=== PATIENT | female | born 1930 | race Caucasian/White ===

== ENCOUNTER 2017-05-09 11:30 | Day surgery (SDC) | payer MEDICARE, BC ==
[~2017-05-09] VITALS: Ht 154.9 cm; Wt 45.5 kg
[2017-05-09] MEDS ORDERED: COZAAR50 MG PO (13:21)
[2017-05-09 13:22] LABS: ANION GAP 15.2 mmol/L (8-16); CALCIUM 8.9 mg/dL (8.5-10.1); CARBON DIOXIDE 26.4 mmol/L (21.0-32.0); POTASSIUM - SERUM 3.6 mmol/L (3.5-5.1)
[2017-05-09] MEDS ORDERED: LOPRESSOR25 MG PO (13:22)
[2017-05-09] MEDS ORDERED: LOMOTIL TABLET1 TAB PO (13:22)
[2017-05-09 13:26] LABS: BASOPHILS 0.3 % (0-2); EOSINOPHILS 0.6 % (0-7); HEMATOCRIT 42.9 % (36.0-48.0); HEMOGLOBIN 14.3 g/dL (12-16); IMMATURE GRANULOCYTES 0.3 % (0-5); LYMPHOCYTES 15.2 % (15-50); MCH 29.4 pg (26.0-34.0); MCHC 33.3 g/dL (31.0-37.0); MCV 88.1 fL (80.0-100.0); MEAN PLATELET VOLUME 10.7 fL (7.4-10.4); MONOCYTES 7.4 % (2-11); NEUTROPHILS 76.2 % (40-80); PLATELET COUNT 269 10x3/uL (130-400); RBC 4.87 10x6/uL (4.00-5.40); RDW 14.2 % (11.5-14.5); WBC 6.9 10x3/uL (4.8-10.8)
[2017-05-09 13:34] VITALS: BP 161/78; Ht 154.9 cm; Wt 45.5 kg
--- NOTE | 2017-05-09 15:22 | NUR ---
IV RT A/C INFILTRATED PRIOR TO PROCEDURE. IV DCD CATHETER INTACT. IV RESITED BY MOLLY SHERMAN CRNA LT HAND NO REDNESS OR SWELLING.
--- NOTE | 2017-05-09 15:23 | NUR ---
STOOLS STUDIES COLLECTED.
--- NOTE | 2017-05-09 17:10 | NUR ---
7873 DISCHARGE INSTRUCTIONS COMPLETE. QUESTRAN PRESCRIPTION GIVEN. SHE HAS NO QUESTIONS OR CONCERNS. ESCORTED OUT BY BRYANT BUSTOS.
--- NOTE | 2017-05-13 07:44 | OP ---
PATIENT NAME: CHRISTY MUHAMMAD MEDICAL RECORD: [id number] :[birth year] LOCATION:D.FORMERLY [facility] [place] ADMISSION DATE: SURGEON: LEAH HAWKINS DO DATE OF OPERATION: 05/09/2017 PROCEDURE: Colonoscopy with biopsies. INDICATIONS FOR PROCEDURE: Periumbilical abdominal pain and diarrhea. SCOPE: Olympus video pediatric colonoscope. MEDICATIONS: Propofol 250 mg IV per anesthesia. WITHDRAWAL TIME: 8 minutes. ESTIMATED BLOOD LOSS: Minimal. COMPLICATIONS: None. FINDINGS: Informed consent was given. The patient was made comfortable with the above medication. After reaching an adequate level of sedation by slow IV push, the patient was placed on her left side. A digital rectal examination was performed and was normal. The endoscope was then advanced under direct visualization through the rectum to the cecum with visualization of the appendiceal orifice and ileocecal valve. There was evidence of mild to moderate pandiverticulosis. Stool was collected during the procedure to send for infectious studies including a culture, white blood count, C. difficile. Random biopsies were taken to submit for histology and to rule out microscopic colitis. Retroflexion was performed in the rectum with visualization of small nonbleeding internal hemorrhoids. The endoscope was then withdrawn from the patient. The patient tolerated the procedure well and there were no complications. IMPRESSION: 1. Mild to moderate pandiverticulosis. 2. Small nonbleeding internal hemorrhoids. PLAN AND RECOMMENDATIONS: 1. Discharge home when recovery parameters are met. 2. Follow up biopsy specimen results. 3. Continue current medications. 4. Continue current diet. 5. Await biopsy specimen results for further recommendations. If the biopsies show evidence of microscopic colitis, this will be treated. If the biopsies are normal, I would recommend a trial of cholestyramine to see if this can bulk the stool and reduce the loose stools and diarrhea. 6. The patient is currently using Lomotil as needed and states that this has helped significantly. This can be continued as needed at this time. TRANSINT:[id number] Voice Confirmation ID: [id number] DOCUMENT ID: [id number] OPERATIVE REPORT [id number] CHRISTY MUHAMMAD LEAH HAWKINS DO at 0744 CC: [id number] DICTATION DATE: 05/09/17 1548 [place] [place] [place] MAORI: 05/09/17 2220 [facility] 05/09/17 [facility] [address] [place] [place] [address]
== END 2017-05-09 17:05 | disposition home or self-care (01) ==
LOC: D.OPS 11:30 → EDSEX 13:30 → D.OPS 13:30
PROVIDERS: Anesthesiology
DX: R19.7 Diarrhea, unspecified (principal); R10.9 Unspecified abdominal pain; K64.8 Other hemorrhoids; K57.30 Diverticulosis of large intestine without perforation or abscess without bleeding; I10 Essential (primary) hypertension; Z01.812 Encounter for preprocedural laboratory examination